=== PATIENT | male | born 2000 | race Two or more races ===

== ENCOUNTER → 2023-07-20 | Outpatient (CLI) | payer OTHER | LOC: M RAD 12:04 | PROVIDERS: ATTEND Student in an Organized Health Care Education/Training Program | DX: N50.819 Testicular pain, unspecified (principal) ==

== ENCOUNTER 2023-10-13 22:07 | Emergency (ER) | payer OTHER ==
[~2023-10-13] VITALS: Ht 175.3 cm; Wt 118.5 kg
[2023-10-13 22:07] VITALS: BP 139/80; TEMP 97.1; O2SAT 97
== END 2023-10-13 22:24 | disposition left against medical advice (07) ==
LOC: M ED 22:07
DX: Z53.21 Procedure and treatment not carried out due to patient leaving prior to being seen by health care provider (principal)